=== PATIENT | male | born 1925 | race Caucasian/White ===

== ENCOUNTER 2016-07-02 17:00 | Emergency (ER) | payer OTHER, BC ==
[~2016-07-02] VITALS: Ht 180.3 cm; Wt 97.1 kg
[~2016-07-02 17:00] MED LIST: APAP500 PO; ASPIRIN EC81 M1 PO; AVODART0.5 MG PO; BENICAR20 MG PO; CENTRUM SILVER1 EAC4 PO; LEVOTHROID175 MCG PO; LUTEIN10 MG PO; PLAVIX 75 MG TA75 M1 PO; SIMVASTATIN80 MG PO; TAMSULOSIN HCL0.4 M1 PO; TOPROL XL25 MG PO; TOPROL XL50 MG PO; VITAMIN D-32000 UNIT PO
[2016-07-02] MEDS ORDERED: BENICAR20 MG PO (17:10)
== END 2016-07-02 18:30 | disposition home or self-care (01) ==
LOC: ER 17:00
DX: S61.212A Laceration without foreign body of right middle finger without damage to nail, initial encounter (principal); I25.10 Atherosclerotic heart disease of native coronary artery without angina pectoris; I10 Essential (primary) hypertension; E03.9 Hypothyroidism, unspecified; Z95.5 Presence of coronary angioplasty implant and graft; Z88.0 Allergy status to penicillin; Z91.041 Radiographic dye allergy status; S61.214A Laceration without foreign body of right ring finger without damage to nail, initial encounter; W01.0XXA Fall on same level from slipping, tripping and stumbling without subsequent striking against object, initial encounter; Y93.89 Activity, other specified; Y92.89 Other specified places as the place of occurrence of the external cause; Y99.9 Unspecified external cause status